=== PATIENT | female | born 1980 | race Caucasian/White ===

== ENCOUNTER → 2018-08-31 | Outpatient (CLI) | payer SELFPAY ==
[~2018-08-31] MED LIST: FERR325C PO; HYDR-89 PO; IBP800T PO; PREN1TAB39 PO
--- NOTE | 2018-08-31 12:12 | Diagnostic Imaging Report ---
PROCEDURE: US Thyroid. TECHNIQUE: Multiple real-time grayscale images were obtained of the thyroid in various projections. INDICATION: Hyperthyroidism. COMPARISON: There are no prior studies available for comparison. FINDINGS: The thyroid gland is borderline enlarged. The right lobe measures 4.9 x 1.8 x 2.0 cm while the left lobe is estimated to be 5.5 x 1.6 x 1.4 cm (normal gland size 4-5 x 2 x 2 cm or less). In the inferior pole of the left lobe, there is a 0.9 x 0.9 x 0.7 cm solid nodule. There is also a partially calcified 1.2 x 0.7 x 1.0 cm nodule in the right lobe. I suspect that these nodules are benign. However, unless previous studies are available for comparison, then a short-term (6 month) followup thyroid ultrasound exam should be obtained. IMPRESSION: The thyroid gland is borderline enlarged and there are nodules in each lobe. Considerations and recommendations as above. Dictated by: Dictated on workstation # [id number]
== END ==
LOC: RAD 09:20
PROVIDERS: ATTEND Nurse Practitioner Family
DX: E04.2 Nontoxic multinodular goiter (principal); E03.9 Hypothyroidism, unspecified; F17.200 Nicotine dependence, unspecified, uncomplicated; E07.89 Other specified disorders of thyroid; Z71.6 Tobacco abuse counseling
CPT/HCPCS: 76536

== ENCOUNTER → 2019-04-25 | Outpatient (CLI) | payer SELFPAY ==
--- NOTE | 2019-04-25 15:09 | Diagnostic Imaging Report ---
PROCEDURE: US Thyroid. TECHNIQUE: Multiple real-time grayscale images were obtained of the thyroid in various projections. INDICATION: Multinodular goiter, follow-up. COMPARISON: Correlation is made with prior exam from 08/31/2018. FINDINGS: Right lobe of the thyroid measures 4.8 x 1.8 x 2.0 cm and the left lobe measures 5.0 x 1.1 x 1.4 cm. Isthmus is 3 mm in thickness. A left lobe does contain solid nodule in the lower pole measuring 6 mm in size. This compares with approximately 9 mm on prior exam. Calcified nodule mid right lobe is again noted measuring 14 mm x 7 mm x 9 mm compared with 12 mm x 7 mm x 10 mm on prior. A 4 mm nodule in the upper pole of the right lobe is also noted. No other masses are seen. IMPRESSION: Overall stable thyroid ultrasound when compared to the exam from 08/31/2018. Dictated by: Dictated on workstation # [id number]
== END ==
LOC: RAD 12:16
PROVIDERS: ATTEND Otolaryngology Otolaryngology/Facial Plastic Surgery
DX: E04.2 Nontoxic multinodular goiter (principal)
CPT/HCPCS: 76536